=== PATIENT | female | born 1980 | race Caucasian/White ===

== ENCOUNTER → 2020-10-21 | Outpatient (CLI) | payer BC | LOC: MC.RAD 14:59 | DX: Z12.31 Encounter for screening mammogram for malignant neoplasm of breast (principal) ==

== ENCOUNTER → 2021-12-27 | Outpatient (CLI) | payer BC | LOC: MC.RAD 08:29 | DX: Z12.31 Encounter for screening mammogram for malignant neoplasm of breast (principal) ==

== ENCOUNTER → 2023-05-09 | Outpatient (CLI) | payer BC | LOC: CANSCHCLI → MC.RAD 14:55 | DX: Z12.31 Encounter for screening mammogram for malignant neoplasm of breast (principal) ==